=== PATIENT | male | born 1945 | race Hispanic/Latino ===

== ENCOUNTER 2016-05-27 08:02 | Day surgery (SDC) | payer MEDICARE ==
--- NOTE | 2016-05-27 09:58 | Anesthesia Day of Surgery ---
Anesthesia Day of Surgery - Day of Surgery Patient Examined: Yes Patient H&P Reviewed: Yes Patient is NPO: Yes
--- NOTE | 2016-05-27 09:58 | Anesthesia Consultation ---
Anesthesia Consult and Med Hx Date of service: 05/27/16 - Airway Anesthetic Teeth Evaluation: Dentures, Partials ROM Head & Neck: Inadequate Mental/Hyoid Distance: Adequate Mallampati Class: Class II Intubation Access Assessment: Probably Good - Pulmonary Exam CTA: Yes - Cardiac Exam Cardiac Exam: RRR - Pre-Operative Health Status ASA Pre-Surgery Classification: ASA3 Proposed Anesthetic Plan: General - Pre-Anesthesia Comment Pre-Anesthesia Comments: recent cervical fusion. Only mild decrease in neck extension. - Pulmonary Hx Smoking: Yes (former smoker) SOB: No Hx Sleep Apnea: No - Cardiovascular System Hx Hypertension: Yes Hx Coronary Artery Disease: No Hx Heart Attack/AMI: No - Central Nervous System Hx Back Pain: Yes Hx Psychiatric Problems: No - Gastrointestinal Hx Gastroesophageal Reflux Disease: No - Endocrine Hx Renal Disease: No Hx Non-Insulin Dependent Diabetes: Yes - Other Systems Hx Alcohol Use: Yes (RARELY NONE IN YRS) Hx Substance Use: No Hx Cancer: No Hx Obesity: No
[2016-05-27] MEDS ORDERED: DILAUDID IV PRN (09:59)
[2016-05-27] MEDS ORDERED: ANCEF/STERILE WATER 2 GM/20 ML IV NR (10:00)
[2016-05-27] MEDS ORDERED: NACL 0.9% 1000 ML 1,000 ML IV SCH (10:00)
[2016-05-27] MEDS ORDERED: VERSED IV NR (10:00)
[2016-05-27] MEDS ORDERED: PEPCID IV NR (10:00)
[2016-05-27] MEDS ORDERED: ZOFRAN IV PRN (10:18)
[2016-05-27] MEDS ORDERED: NORCO 5/325 PO PRN (10:18)
[2016-05-27] MEDS ORDERED: DIPRIVAN 10 MG/ML IV ONE (10:25)
[2016-05-27] MEDS ORDERED: SUBLIMAZE ONE (10:25)
[2016-05-27] MEDS ORDERED: NACL 0.9% 1000 ML 1,000 ML ONE (11:41)
[2016-05-27] MEDS ORDERED: XYLOCAINE MPF 2% ONE (11:44)
[2016-05-27] MEDS ORDERED: NEO SYNEPHRINE/NS Syringe(OR USE) IV ONE (11:56)
[2016-05-27] MEDS ORDERED: NACL 0.9% 100 ML ONE (11:56)
[2016-05-27] MEDS ORDERED: WATER FOR IRRIG STERILE IR ONE ×2 (12:00)
[2016-05-27] MEDS ORDERED: ZOFRAN ONE (12:07)
[2016-05-27] MEDS ORDERED: DECADRON ONE (12:07)
[2016-05-27] MEDS ORDERED: LASIX ONE (12:12)
--- NOTE | 2016-05-27 12:52 | Operative Report ---
PREOPERATIVE DIAGNOSIS: Neurogenic bladder. POSTOPERATIVE DIAGNOSES: Neurogenic bladder with beginning of urethral erosion. PROCEDURE: Cystoscopy, suprapubic tube insertion using the Lowsley. SURGEON: Jersey Gonzalez MD ANESTHESIA: General. FINDINGS: This is a gentleman with recurrent retention with neurogenic bladder, now presents with suprapubic tube. The catheter has been causing urethral erosion, now presents for treatment. DESCRIPTION OF PROCEDURE: The patient was brought to the operating room and placed on the operating table. Following induction of anesthesia, placed in lithotomy position, prepped and draped in usual sterile fashion. Cystourethroscopy showed debris in the bladder. Bladder was incompletely emptied with this catheter, with the urethral meatus patulous and beginning erosion. At this point, the Lowsley was easily palpated and we cut down right on the Lowsley and brought the Lowsley forward through the abdominal incision. A 22 Hopper was brought out through the meatus and then we followed this into the bladder. We put approximately 15 mL in the catheter and secured it with silk. The patient tolerated the procedure well. No significant bleeding. Catheter irrigated freely, brought to recovery in stable condition. JOB# [id number] GAMAL/SEAN
--- NOTE | 2016-05-27 13:03 | Post Operative Note ---
Pre-op diagnosis: neurogeni bladder Post-op diagnosis: same Findings: as above Procedure: spt insertion cysto Anesthesia: GETA Surgeon: AMMY MUNOZ Estimated blood loss: none Pathology: none Condition: stable Disposition: PACU
--- NOTE | 2016-05-27 13:04 | Discharge Summary ---
Short Stay Discharge Plan Activity: other Weight Bearing Status: Partial Weight Bearing Diet: low fat, low cholesterol, low salt Wound: keep clean and dry Special Instructions: other (neosporin around cath q day ) Durable Medical Equipment Needed Upon Discharge: other (suprapubic tube care ) Follow up with: PRIMARY CARE, [Primary Care Provider] - 7 Days AMMY MUNOZ MD [Staff Physician] - 14 Days
--- NOTE | 2016-05-27 14:08 | Post Anesthesia Evaluation ---
- Post Anesthesia Evaluation Patient Participated: Yes Airway Patent: Yes Stable Respiratory Function: Yes Nausea/Vomiting: No Temp > 96.8F: Yes Pain Manageable: Yes Adequeate Hydration: Yes Anesthesia Complications: No Block Receding Appropriately: Not Applicable Patient on Ventilator: No
[2016-05-27 16:33] VITALS: BP 104/56
--- NOTE | 2016-05-27 21:08 | Admit Criteria Form ---
Admission Criteria Documentation: AMBULATORY SURGERY EXCEPTION CRITERIA Ambulatory Surgery Exception Criteria ( Place 'X' for any and all applicable criteria): Surgery or procedure performed on ambulatory basis may require inpatient stay for[A] ANY ONE of the following(1)(2)(3)(4)(5)(6)(7)(8)(9): [X] I. A preoperative situation, condition, or finding that warrants inpatient stay as indicated by ANY ONE of the following: [] a) Inpatient care needed because of severity of a disease or condition rather than the surgery (eg, severe cardiac or respiratory disease, severe infection) (15) (16 ) (17) (18) [] b) Emergent procedure (eg, angioplasty for acute ischemia)(19) [] c) Complex surgical approach or situation as indicated by ANY ONE of the following(3): [] i) Open approach needed instead of usual endoscopic, transcatheter, or other less invasive procedure [] ii) Difficult approach because of previous operation [] iii) Airway monitoring required after open neck procedures(20)(21) [] iv) Large mass requiring unusually extensive dissection [] v) Additional complicating feature requiring inpatient care (eg, drain management)(22(23): [X] d) Major surgery in a pt with high anesthetic risk as indicated by ANY ONE of the following (2)(3)(5)(7)(8): [X] i) ASA risk class III or higher (severe systemic disease impairing function) [D] [] ii) Advanced age (eg, older than 85 years)(14)(24) [] iii) Symptomatic heart failure(25) [] iv) Symptomatic asthma or COPD(8)(21) [] v) Morbid obesity with hemodynamic or respiratory problems(20)( 21)(26)(27) [] vi) Obstructive sleep apnea(20)(21) [] vii) Former premature infants who are younger than 60 weeks [] viii) High risk for severe postoperative abnormalities (eg, severe postoperative hypocalcemia after parathyroidectomy for severe hyperparathyroidism)(27)( 28) [] ix) Unstable angina(25) [] e) Drug-related risk requiring inpatient stay as indicated by ANY ONE of the following(5)(10)(14)(32)(33) [] i) Procedure requires discontinuing drugs or other therapy (eg , antiarrhythmic medication, antiseizure medication), which necessitates inpatient observation or treatment.(18)(31) [] ii) Major surgery and high risk drug use as indicated by ANY ONE of the following: [] 1) Active abuse of cocaine or similar drug [] 2) Monoamine oxidase inhibitor use [] 3) Other drug identified as posing risk [] f) Inadequate outpatient care situation as indicated by ANY ONE of the following(5)(10)(14)(32)(33) [] i) Patient lives remote from medical facility and procedure has urgent complication potential, and temporary nearby residence cannot be arranged [] ii) Patient will have postprocedure incapacitation and inadequate assistance at home, or alternative level of care cannot be arranged. [] iii) Patient will have long general anesthesia or procedure side effect resolution time, and competent person to stay with patient on first postoperative night at home or alternative level of care cannot be arranged. []iv) Other inadequate outpatient situation that cannot be handled by other means [] II. A perioperative event, condition, or finding that warrants inpatient stay as indicated by ANY ONE of the following (1)(2)(3): [] a) Inadequate physiologic recovery: cardiovascular, respiratory, or hemodynamic status not normal or near preoperative baseline(18) [] b) Hemodynamic instability [] c) Patient not alert with near normal or baseline mental status [] d) Temperature not normal or as expected and not appropriate for outpatient treatment of condition [] e) Ambulatory or appropriate activity level status not yet achieved post procedure [E](34)(35)(36) [] f) Operative site not appropriate (eg, unexpected or excessive drainage or bleeding) [] g) Postoperative effects not resolved or adequately managed (eg, significant pain or vomiting not appropriate for outpatient or next level of care)(10)(12) [] h) Complicating features requiring inpatient care as indicated by ANY ONE of the following(37): [] i) Severe complications of procedure (eg, bowel injury, airway compromise, vascular injury,severe hemorrhage) [] ii) Extensive (eg, dissection far beyond usual scope of procedure ) or prolonged (eg, 120 minutes beyond usual) surgery needed requiring inpatient postoperative care [] iii) Conversion to an open or complex procedure that requires inpatient care (eg, open vs laparoscopic cholecystectomy, abdominal vs vaginal hysterectomy)(38) [] iv) Comorbid condition or test result identified during or post procedure that requires inpatient care (7) [] v) Malignant hyperthermia(30) [] vi) Other complicating feature requiring inpatient care(22)(23) Inpatient stay may be needed until ALL of the following are present (1)(2)(3)(4) (5)(6)(10)(14)(33)(40): []a) Physiologic recovery: cardiovascular, respiratory, and hemodynamic status normal or near preoperative baseline []b) Hemodynamic stability []c) Patient alert, with near normal or baseline mental status []d) Temperature appropriate: patient afebrile or temperature appropriate for outpt treatment of condition []e) Activity level appropriate: ambulatory or appropriate activity level post procedure []f) Operative site appropriate as indicated by ALL of the following: []i) Site dry or with expected drainage []ii) Any blood noted is as expected for procedure. []g) Postoperative effects resolved or managed as indicated by ALL of the following: []i) Pain management appropriate for outpatient (or next level of) care(10) []ii) Minimal nausea and vomiting: if present, successfully treated with oral medication(12) []iii) Headache, dizziness, or drowsiness (if present) are mild. []h) Voiding status acceptable as indicated by ANY ONE of the following: []i) Voiding spontaneously []ii) No voiding but instructions given for follow-up in 6 to 8 hours []iii) Urinary catheter in place, and instructions given for follow-up []i) Complicating features requiring inpatient care manageable at a lower level of care(37) []j) Comorbid conditions manageable at a lower level of care(37) The original [employer] content created by [employer] has been revised. The portions of the content which have been revised are identified through the use of italic text or in bold, and [facility] [employer] has neither reviewed nor approved the modified material. All other unmodified content is copyright [employer]. Please see references footnoted in the original [employer] edition 2016 Admission Criteria Met: Yes
== END 2016-05-27 15:00 | disposition home or self-care (01) ==
LOC: OR 08:02
PROVIDERS: ATTEND Urology
DX: N31.9 Neuromuscular dysfunction of bladder, unspecified (principal); N36.8 Other specified disorders of urethra; I10 Essential (primary) hypertension; Z87.891 Personal history of nicotine dependence
CPT/HCPCS: 51102; 82962; A4217; J0690; J1100; J1940; J2250; J2370; J2405; J2704; J3010; J7030